=== PATIENT | male | born 1935 | race Caucasian/White ===

== ENCOUNTER 2017-04-19 17:35 | Inpatient (IN) | payer OTHER, BC ==
[~2017-04-19] VITALS: Ht 180.3 cm; Wt 95.4 kg
--- NOTE | ~2017-04-19 | HC ---
[facility] [place] [address] CONSULTATION Name: JEROME WHITLOCK Room #: 208-P [facility] IN M.R.#: [id number] Admission: 04/19/17 Attend Phys: Darek Alanis MD Discharge: Date of : 35 Report #: [id number] THIS REPORT FOR: //name// CC: Be Javid Alanis DATE OF SERVICE: 04/20/2017 REASON FOR CONSULTATION: Possible exacerbation of chronic obstructive pulmonary disease. IMPRESSION: 1. Bilateral pulmonary infiltrates, likely congestive heart failure, but since there is a possible left effusion, we will further review. 2. Atrial fibrillation with rapid ventricular response. 3. Chronic obstructive pulmonary disease. 4. Esophageal cancer. 5. Distant history of tobacco use. PLAN: EzPAP, DuoNeb, budesonide, sputum culture. Diurese per Cardiology. Incentive spirometry, PT/OT to see, Speech Therapy to see for aspiration. Doubt pulmonary embolus with the patient being on Pradaxa. HISTORY OF PRESENT ILLNESS: An 82-year-old male, admitted to [facility] with AFib with RVR and transferred here for further therapy. He denies fever, chills or sweats. He has not seen Dr. Park in [place]. We discussed followup with this in the future. He denies hemoptysis or hematemesis. MEDICATIONS: Include aspirin, Hytrin, potassium, clonidine, Lipitor, ____, Combivent, Pradaxa, Symbicort, Diovan. FAMILY HISTORY: Noncontributory. SOCIAL HISTORY: Quit smoking 30 years ago. Negative significant ETOH. REVIEW OF SYSTEMS: No fever, chills or night sweats. No nausea or vomiting. Positive cough, whitish to sellers sputum. No loose stools. PHYSICAL EXAMINATION: VITAL SIGNS: Temperature 98.3, pulse 100, respirations 18, BP 141/68. GENERAL: Voice is hoarse. He is alert and oriented. LUNGS: Wheeze, rhonchi, crackles bilaterally. HEART: Irregular. ABDOMEN: Bowel sounds present. EXTREMITIES: Showed chronic change, moved all extremities. No calf tenderness. [facility] [address] [place] [address] CONSULTATION Name: JEROME WHITLOCK Room #: 208-P [facility] IN M.R.#: [id number] Admission: 04/19/17 Attend Phys: Darek Alanis MD Discharge: Date of : 35 Report #: [id number] LABORATORY DATA: White count 7.7, hemoglobin 11.7, platelets 220. BUN 21, creatinine 1.2, albumin 2.1. INR 1.2. The pH 7.38, pCO2 of 45, pO2 of 80 on 3-1/2 liters. Lactate was 1.39. Chest x-ray showed cardiomegaly, pulmonary vascular congestion, question left greater than right effusion. We will follow closely with you. <ELECTRONICALLY SIGNED> By: Viktor Redmond MD 04/24/17 0942 1126 55 Viktor Redmond MD /nt
--- NOTE | ~2017-04-19 | EKG ---
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 : 1935 Requested By: Giuliana Baker Order Number: [id number] MD: Shar Art Measurements Intervals [place] Rate: 122 P: 155 UT: 112 QRS: -45 QRSD: 150 T: 27 QT: 379 QTc: 540 Interpretive Statements Atrial fibrillation with a rapid ventricular response Multiform ventricular premature complexes RBBB and LAFB Compared to ECG 06/26/2011 08:56:14 Ventricular premature complex(es) now present Atrial fibrillation has replaced sinus rhythm Electronically Signed On 04-20-2017 7:27:42 CDT by Shar Art [email or web address] <ELECTRONICALLY SIGNED> By: Shar Art MD, [facility] 04/20/17 0727 1950 1950 Shar Art MD, [facility] /EPI
--- NOTE | ~2017-04-19 | 2DMMODE ---
[facility] [address] [place] [address] 2 D/M-MODE ECHOCARDIOGRAM Name: JEROME WHITLOCK Room #: 208-P [facility] IN [facility]#: [id number] Admission: 04/19/17 Attend Phys: Darek Alanis, Discharge: Date of : 35 Date of Service: 04/22/17 1112 Report #: [id number] THIS REPORT FOR: //name// APPROVED REPORT Study performed: 04/22/2017 08:52:24 EXAM: Comprehensive 2D, Doppler, and color-flow Echocardiogram Patient Location: Bedside Room #: 208 Status: routine BSA: 2.18 HR: 102 bpm BP: 119/64 mmHg Other Information Study Quality: Adequate Indications COPD Atrial Fibrillation Dyspnea CAD 2D Dimensions RVDd: 32.35 mm LVEF(%): 51.49 (>50%) IVSd: 10.48 (7-11mm) LVOT Diam: 19.88 (18-24mm) LVDd: 45.38 mm PWd: 11.20 (7-11mm) Ascending Ao: 36.51 (22-36mm) LVDs: 33.49 (25-40mm) Aortic Root: 27.28 mm IVC: 17.00 mm Hubbard's LVEF: 51.49 % Volumes Left Atrial Volume (Systole) Single Plane 4CH: 72.09 mL Single Plane 2CH: 68.73 mL LA ESV Index: 34.00 mL/m2 Aortic Valve AoV Peak Morris.: 1.44 m/s AO Peak Gr.: 8.33 mmHg LVOT Max P.66 mmHg LVOT Max V: 0.81 m/s WINSTON Vmax: 1.76 cm2 Mitral Valve [facility] [address] [place] [address] 2 D/M-MODE ECHOCARDIOGRAM Name: JEROME WHITLOCK Room #: 208-P [facility] IN [facility].#: [id number] Admission: 04/19/17 Attend Phys: Darek Alanis, Discharge: Date of : 35 Date of Service: 04/22/17 1112 Report #: [id number] MV Decel. Time: 238.40 ms MV E Max Morris.: 0.80 m/s IVRT: 103.81 ms Pulmonary Valve PV Peak Morris.: 1.04 m/s PV Peak Gr.: 4.33 mmHg Tricuspid Valve TR Peak Morris.: 2.44 m/s TR Peak Gr.: 23.82 mmHg PA Pressure: 29.00 mmHg Left Ventricle The left ventricle is normal size. Slightly abnormal septal motion likely due to conduction abnormality, otherwise normal wall motion Other segments There is normal left ventricular wall thickness. The left ventricular systolic function is normal. The left ventricular ejection fraction is within the normal range. LVEF is 55-60%. Transmitral Doppler flow pattern suggests restrictive physiology. Right Ventricle The right ventricle is normal size. The right ventricular systolic function is normal. Atria Left atrium is dilated. Right atrium is dilated. Aortic Valve Aortic valve is calcified. Trace aortic regurgitation. There is no aortic valvular stenosis. Mitral Valve The mitral valve is normal in structure. There is mitral annular calcification. Trace to mild mitral regurgitation. No evidence of mitral valve stenosis. Tricuspid Valve The tricuspid valve is normal in structure. Mild to moderate tricuspid regurgitation. Estimated PA pressure 35-40mmHg mmHg Pulmonic Valve The pulmonary valve is normal in structure. [employer] [facility] [address] [place] [address] 2 D/M-MODE ECHOCARDIOGRAM Name: JEROME WHITLOCK Room #: 208-P ADM IN M.R.#: [id number] Admission: 04/19/17 Attend Phys: Darek Alanis, Discharge: Date of : 35 Date of Service: 04/22/17 1112 Report #: [id number] The aortic root is normal in size. IVC is normal in size and collapses >50% with inspiration. Pericardium There is no pericardial effusion. <Conclusion> LVEF is 55-60%. Left atrium is dilated. Right atrium is dilated. Aortic valve is calcified. Transmitral Doppler flow pattern suggests restrictive physiology. Trace to mild mitral regurgitation. Mild to moderate tricuspid regurgitation. <ELECTRONICALLY SIGNED> By: Ron Patel MD, [facility] 04/22/17 1112 11 11 Ron Patel MD, [facility] /INF
--- NOTE | ~2017-04-19 | HC ---
[facility] [place] [address] CONSULTATION Name: JEROME WHITLOCK Room #: 208-P [facility] IN .R.#: [id number] Admission: 04/19/17 Attend Phys: Darek Alanis MD Discharge: Date of : 35 Report #: [id number] THIS REPORT FOR: //name// CC: Be Javid Alanis DATE OF SERVICE: 04/23/2017 HISTORY OF PRESENT ILLNESS: The patient is an 82-year-old white male with a history of atrial fibrillation, hypertension, elevated lipids, chronic respiratory failure, and 1 liter nasal prong O2 at night. He was admitted with atrial fibrillation with rapid ventricular rate. He had a heart rate up into 170s. He was started on diltiazem drip, transferred to [facility]. He is on Pradaxa. He is noted to have acute on chronic diastolic heart failure, diagnosed with aspiration pneumonia. He also was noted to have an encephalopathy thought to be metabolic. CT of the head was negative. Pulmonary Medicine is involved as well as Internal Medicine. He is noted to have significant weakness along with his encephalopathy and we are seeing him in rehabilitation medicine consultation. PAST MEDICAL HISTORY: Esophageal cancer for which he has been on chemotherapy and radiation. He has history of COPD. He had a coronary artery bypass graft x 4 back and back on O2, history of ischemic cardiomyopathy. MEDICATIONS: Please see the full medication listing. ALLERGIES: SULFA. HABITS: Past tobacco use. SOCIAL HISTORY: Lives in a house with his . He only used a walk most recently with his worsening medical condition. He was on oxygen at night. No steps into the house, was noted to be able to assist with some of the chores around the house and was doing some driving. is apparently in good health. REVIEW OF SYSTEMS: Did not offer any current complaints of chest pain, shortness of breath, abdominal discomfort. Complains of some overall generalized weakness. Notes some frustration and is hoping to return back to the home setting when further improved. PHYSICAL EXAMINATION: GENERAL: An 82-year-old male in no obvious distress. VITAL SIGNS: Last recorded temperature is 98.1, pulse 105, respirations 18, blood pressure 135/87. NEUROLOGIC: He is alert, pleasant. There is a definite latency to his responses. He has some difficulty understanding some of the testing and [facility] [address] [place] [address] CONSULTATION Name: JEROME WHITLOCK Room #: 208-P [facility] IN M.R.#: [id number] Admission: 04/19/17 Attend Phys: Darek Alanis MD Discharge: Date of : 35 Report #: [id number] commands following that, I was asking him to do. Facies appeared symmetric. He is on nasal prong O2, currently 3 liters. He has functional range of motion of both upper extremities. Strength is grade 4- to 3+/5. DTRs are trace to 1. In his lower extremities, there is no focal calf swelling, functional range of motion with strength grade 3+/5. DTRs are trace to 1. He is mod assist with sit to stand. Gait was 2 feet and then 10 side steps with the front wheeled walker. He is needing mod assist. He is on a mechanical soft diet with thin liquids. ASSESSMENT: An 82-year-old white male with the following problems: 1. Metabolic encephalopathy. 2. Medical complexity with generalized debilitation. 3. Acute on chronic diastolic heart failure. 4. Atrial fibrillation with rapid ventricular rate. He has been on digoxin IV, metoprolol with goal to try to wean off the drip. He is on Pradaxa. 5. Pneumonia noted to be aspiration pneumonia. 6. Past history of esophageal cancer with treatment with chemoradiation. 7. Hypertension. 8. Mmzivcfd-ma-wkgxjw protein-calorie malnutrition. 9. Prior history of coronary artery bypass grafting x 4. 10. Past history of ischemic cardiomyopathy. PLAN: Would anticipate that the patient would be a candidate for an acute in-hospital inpatient rehabilitation stay. To further maximize his functional independence once he is further medically stabilized. From a preadmission screening perspective: 1. Prior level of function is well delineated above. 2. Expect level of improvement would be for the patient to become modified independent with transfers, mobility and ADLs at the walker level with improved cognition and improve strength and endurance. Would anticipate length of stay of probably 7-10 days, potentially longer if needed. 3. Evaluation of the patient's risk for clinical complications. He does have the multiple medical comorbidities as noted above. 4. Condition that caused the need for rehabilitation would be the metabolic encephalopathy along with a medical complexity with generalized debilitation. 5. Treatments needed would include PT, OT and speech 1 hour per day each five days a week throughout the duration of the acute inpatient rehabilitation stay. 6. Anticipated discharge destination would be back to the home setting with . 7. Anticipated post-discharge treatments would include home healthcare therapies post-discharge. 8. The patient meets diagnostic criteria for an acute in-hospital inpatient rehabilitation stay. He does meet medical necessity criteria and we would have the multiple cognos consultant physicians continue to follow along with him while he is on rehabilitation. This includes Internal Medicine, Cardiology and Pulmonary Medicine. The patient does appear to have the tolerance for an acute [facility] [address] [place] [address] CONSULTATION Name: JEROME WHITLOCK Room #: 208-P [facility] IN .R.#: [id number] Admission: 04/19/17 Attend Phys: Darke Alanis MD Discharge: Date of : 35 Report #: [id number] in-hospital inpatient rehabilitation stay and has appropriate discharge goals back to the home setting. By: [id number] 0205 Bubba English MD /PMT
--- NOTE | ~2017-04-19 | EKG ---
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 Compared to ECG 04/20/2017 06:10:05 Ventricular premature complex(es) now present Electronically Signed On 04-21-2017 12:00:35 CDT by Boy Johnson [email or web address] <ELECTRONICALLY SIGNED> By: Boy Johnson MD 04/21/17 1200 0856 0856 Boy Johnson MD /RAMY
--- NOTE | ~2017-04-19 | EKG ---
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 : 1935 Requested By: Bubba Cao Order Number: [id number] MD: Shar Art Measurements Intervals [place] Rate: 113 P: [place]: QRS: -47 QRSD: 144 T: 37 QT: 349 QTc: 479 Interpretive Statements Atrial fibrillation RBBB and LAFB Compared to ECG 06/26/2011 08:56:14 Left anterior fascicular block now present Premature ventricular complexes are no longer present Electronically Signed On 04-20-2017 7:33:49 CDT by Shar Art [email or web address] <ELECTRONICALLY SIGNED> By: Shar Art MD, [facility] 04/20/17 0733 0610 0610 Shar Art MD, [facility] /EPI
--- NOTE | ~2017-04-19 | HC ---
[facility] [place] [address] CONSULTATION Name: JEROME WHITLOCK Room #: 208-P [facility] IN .R.#: [id number] Admission: 04/19/17 Attend Phys: Darek Alanis MD Discharge: Date of : 35 Report #: [id number] THIS REPORT FOR: //name// CC: Be Alanis DATE OF SERVICE: 04/20/2017 REQUESTING PHYSICIAN: Dr. Be Hua. FREE LANCE ARTIST: Dr. Ron Patel. REASON FOR CONSULTATION: Atrial fibrillation, shortness of breath, cough. HISTORY OF PRESENT ILLNESS: The patient is an 82-year-old man with obstructive lung disease, presented to Emergency Department at [facility] with dizziness and weakness, shortness of breath, atrial fibrillation, heart rates in the 150s to 160s. He was given IV Cardizem and his heart rate improved to 120s. 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 This included anticoagulation as well as rate control for his persistent atrial fibrillation. PAST MEDICAL HISTORY: He has a history of coronary artery disease, but denies chest pain or pressure. He admits he has been short of breath and coughing. He has a history of lung disease. He has oxygen requirement of 2 liters, his sats are in the low 90s. He denies syncope or presyncope. Denies fall or GI or bleeding. HOME MEDICATIONS: Include persistent atrial fibrillation, chronically anticoagulated, history of 2002 CABG, essential hypertension, adenocarcinoma of the esophagus, this year with chemotherapy and radiation therapy. His home medications include atorvastatin 40 mg daily, clonidine 0.2 mg p.o. b.i.d., Cardizem 180 mg p.o. daily and 240 mg in the evening, hydrochlorothiazide 25 mg daily, albuterol, Atrovent, metoprolol 25 mg p.o. b.i.d. FAMILY HISTORY: Both his parent had heart disease and strokes. PAST SURGICAL HISTORY: No recent surgeries. SOCIAL HISTORY: He is a former smoker. Quit more than 20 years ago. He does not drink. [facility] [address] [place] [address] CONSULTATION Name: JEROME WHITLOCK Room #: 208-P [facility] IN [facility].#: [id number] Admission: 04/19/17 Attend Phys: Darek Alanis MD Discharge: Date of : 35 Report #: [id number] ALLERGIES: SULFA. REVIEW OF SYSTEMS: GASTROINTESTINAL: No abdominal pain, nausea, vomiting, hematemesis or melena. NEUROLOGIC: Denies slurred speech, weakness or falls. SKIN: No rashes. HEMATOLOGIC: No anemia or bleeding disorders. ALLERGIES: CONTRAST allergies. CARDIOVASCULAR: No chest pain. Positive shortness of breath, positive orthopnea, positive PND, no edema. He actually has lost weight. GENITOURINARY: No dysuria or hematuria. MUSCULOSKELETAL: Joint or leg pain or swelling. VITAL SIGNS: He is in atrial fibrillation and on a Cardizem drip with heart rate in the 120s, blood pressure is stable in 130s to 160s with ____ diastolic blood pressures in the 70s, O2 sats 95% on 2-3 liters, temperature is 36.9. GENERAL: This is a pleasant elderly male who is alert, oriented, no apparent distress. NECK: Supple. No jugular venous distention. CARDIOVASCULAR: Irregular, I cannot hear a murmur or S3. LUNGS: Coarse breath sounds bilaterally. ABDOMEN: Soft, nontender. EXTREMITIES: There is no peripheral edema. SKIN: Warm and dry. Electrocardiogram from [place] demonstrated atrial fibrillation with controlled ventricular response. LABORATORY DATA: From [place]: INR was 1.4, sodium is 139, potassium 3.7, chloride is 103, CO2 is 30, BUN is 23, creatinine is 1.0. AST is 20, ALT 16. Troponin I is 0.04. BNP is 10,188. RADIOLOGIC IMAGING: Chest x-ray here at [place] demonstrates cardiomegaly with pulmonary vascular congestion and mild interstitial edema, pleural effusions, left basilar pneumonia not excluded. His troponin I was reportedly normal at [facility]. IMPRESSION: 1. Acute diastolic congestive heart failure. I have ordered an echocardiogram to assess LV function. He is on b.i.d. Lasix. 2. Atrial fibrillation with rapid ventricular response, part of this is due to medicine noncompliance. I would continue with Cardizem. I would avoid amiodarone and high dose beta blockers because of obstructive lung disease. 3. Possible pneumonia. I will consult our pulmonary colleagues. 4. Chronic obstructive pulmonary disease exacerbation as above. [facility] [address] [place] [address] CONSULTATION Name: JEROME WHITLOCK [place] Room #: 208-P [facility] IN M.R.#: [id number] Admission: 04/19/17 Attend Phys: Darek Alanis MD Discharge: Date of : 35 Report #: [id number] 5. Coronary artery disease, status post coronary artery bypass graft, clinically he is asymptomatic for angina. We will continue with conservative medical treatment approach. 6. History of adenocarcinoma. He has significant debilitation. By: [id number] Ron Patel MD, FACC /nt
[~2017-04-19 17:35] MED LIST: ADULT LOW DOSE81 MG PO; AVODART0.5 MG PO; CLONIDINE HCL0.2 M2 PO; COREG PO; COUMADIN 2 MG TA2 M1 PO; CRESTOR10 MG PO; DILTIAZEM ER180 M1 PO; DUONEB 2.5-0.5 M3 ML; HYDROCHLOROTHIA50 MG PO; HYTRIN10 MG PO; LOPRESSOR PO; MULTAQ400 MG; MULTIVITAMINS PO; NORVASC10 MG; PACERONE 200 M200 M1; POTASSIUM20 PO; PRADAXA150 MG; PROVENTIL; SOTALOL 120 MG120 MG PO; VALTURNA 300-31 EACH PO
[2017-04-19] MEDS ORDERED: LIPITOR40 MG PO (19:38)
[2017-04-19 19:39] VITALS: BP 133/84
[2017-04-19] MEDS ORDERED: CARTIA XT180 M1 PO (19:39)
[2017-04-19] MEDS ORDERED: CARTIA XT240 M1 PO (19:45)
[2017-04-19] MEDS ORDERED: COMBIVENT RESPIM4 GM IH (19:46)
[2017-04-19] MEDS ORDERED: HYDROCHLOROTHIA25 M2 PO (19:46)
[2017-04-19] MEDS ORDERED: TOPROL XL25 MG PO (19:47)
[2017-04-19] MEDS ORDERED: PRADAXA150 MG PO (19:48)
[2017-04-19] MEDS ORDERED: SYMBICORT160 MCG/4. INH (19:48)
[2017-04-19] MEDS ORDERED: DIOVAN320 MG PO (19:49)
[2017-04-19] MEDS ORDERED: TERAZOSIN HCL10 MG PO (19:49)
[2017-04-19 19:53] LABS: HEMATOCRIT 34.4 % (42.0-52.0); HEMOGLOBIN 11.7 gm/dL (14.0-18.0); MCHC 33.9 g/dL (28.0-37.0); MCV 91.2 fL (80.0-100.0); RBC 3.77 mil/uL (4.50-6.00); RDW 19.3 % (10.5-14.5); WBC 7.7 thou/uL (4.0-11.0)
[2017-04-19 19:56] LABS: CALCIUM 8.2 mg/dL (8.5-10.1); CREATININE 1.2 mg/dL (0.7-1.3); POTASSIUM 3.5 mmol/L (3.5-5.1)
[2017-04-19 20:02] LABS: ALBUMIN 2.1 g/dL (3.4-5.0); INR 1.2; PROTIME 12.3 Seconds (9.3-11.4); TOTAL BILIRUBIN 0.9 mg/dL (<0.1-1.0); TOTAL PROTEIN 6.7 g/dL (6.4-8.2)
[2017-04-19 20:13] LABS: ABG COMMENT NO COMPLICATIONS.; ABG SAMPLE TYPE ARTERIAL; BE(vivo) 0.8 mmol/L (-2 to +3); HCO3 26.1 mmol/L (22.0-26.0); LACTATE 1.39 mmol/L (0.5-2.0); O2(CT) 16.3 mL/dL (15.0-23.0); O2Hb 93.4 % (92.0-98.0); PCO2 44.9 mmHg (35.0-45.0); PO2 79.7 mmHg (80.0-100.0); STICK SITE R.RADIAL; pH 7.383 (7.360-7.450); sO2 95.6 % (92.0-98.0); tCO2 27.5 mmol/L (24.0-30.0)
[2017-04-19 23:34] VITALS: BP 149/81
[2017-04-20] VITALS (12 sets, daily range): BP systolic 110–161; BP diastolic 58–108
[2017-04-20 04:22] LABS: HEMATOCRIT 35.5 % (42.0-52.0); HEMOGLOBIN 11.8 gm/dL (14.0-18.0); MCH 30.4 pg (26.0-34.0); MCHC 33.1 g/dL (28.0-37.0); MCV 91.6 fL (80.0-100.0); RBC 3.87 mil/uL (4.50-6.00); RDW 19.4 % (10.5-14.5); WBC 7.6 thou/uL (4.0-11.0)
[2017-04-20 04:30] LABS: INR 1.2; PROTIME 12.4 Seconds (9.3-11.4)
[2017-04-20 04:46] LABS: CALCIUM 8.2 mg/dL (8.5-10.1); POTASSIUM 3.3 mmol/L (3.5-5.1); TOTAL PROTEIN 6.7 g/dL (6.4-8.2)
[2017-04-21] VITALS (8 sets, daily range): BP systolic 117–137; BP diastolic 67–94
[2017-04-21 00:36] LABS: HEMATOCRIT 37.1 % (42.0-52.0); HEMOGLOBIN 12.5 gm/dL (14.0-18.0); MCH 30.6 pg (26.0-34.0); MCHC 33.7 g/dL (28.0-37.0); MCV 90.7 fL (80.0-100.0); RBC 4.09 mil/uL (4.50-6.00); RDW 18.8 % (10.5-14.5); WBC 6.4 thou/uL (4.0-11.0)
[2017-04-21 00:39] LABS: CALCIUM 8.2 mg/dL (8.5-10.1); CREATININE 0.9 mg/dL (0.7-1.3); POTASSIUM 3.1 mmol/L (3.5-5.1)
[2017-04-21 00:40] LABS: INR 1.3; PROTIME 13.5 Seconds (9.3-11.4)
[2017-04-22 03:36] VITALS: BP 119/64
[2017-04-22 03:41] LABS: HEMATOCRIT 36.7 % (42.0-52.0); HEMOGLOBIN 12.1 gm/dL (14.0-18.0); MCH 30.4 pg (26.0-34.0); MCV 92.1 fL (80.0-100.0); RBC 3.99 mil/uL (4.50-6.00); RDW 18.8 % (10.5-14.5); WBC 6.3 thou/uL (4.0-11.0)
[2017-04-22 04:21] LABS: CREATININE 0.8 mg/dL (0.7-1.3); POTASSIUM 3.8 mmol/L (3.5-5.1)
[2017-04-22 07:30] VITALS: BP 117/71
[2017-04-22 08:15] VITALS: BP 122/61
[2017-04-22 12:00] VITALS: BP 134/64
[2017-04-22 15:35] VITALS: BP 106/62
[2017-04-22 19:41] VITALS: BP 125/66
[2017-04-22 23:27] LABS: HEMATOCRIT 34.4 % (42.0-52.0); HEMOGLOBIN 11.7 gm/dL (14.0-18.0); MCH 30.9 pg (26.0-34.0); MCV 90.8 fL (80.0-100.0); PLATELET COUNT 193 thou/uL (150-400); RBC 3.78 mil/uL (4.50-6.00); RDW 18.9 % (10.5-14.5); WBC 6.2 thou/uL (4.0-11.0)
[2017-04-22 23:35] LABS: MANUAL DIFF YES
[2017-04-22 23:57] LABS: ABSOLUTE NEUTROPHILS 3.5 thou/uL (1.4-8.2); ANISOCYTOSIS 2+; ATYPICAL LYMPHS 4 %; METAMYELOCYTES 1 %; TOTAL CELL COUNT 100
[2017-04-23] VITALS (7 sets, daily range): BP systolic 113–153; BP diastolic 71–87
[2017-04-23 04:04] LABS: HEMATOCRIT 34.5 % (42.0-52.0); HEMOGLOBIN 11.7 gm/dL (14.0-18.0); MCH 30.8 pg (26.0-34.0); MCV 90.7 fL (80.0-100.0); RBC 3.81 mil/uL (4.50-6.00); RDW 18.5 % (10.5-14.5); WBC 6.7 thou/uL (4.0-11.0)
[2017-04-23 04:19] LABS: CALCIUM 8.2 mg/dL (8.5-10.1); CREATININE 0.9 mg/dL (0.7-1.3); POTASSIUM 3.6 mmol/L (3.5-5.1)
[2017-04-23 04:20] LABS: INR 1.3; PROTIME 13.5 Seconds (9.3-11.4)
[2017-04-24 03:53] VITALS: BP 121/73
[2017-04-24 04:31] LABS: INR 1.6; PROTIME 16.1 Seconds (9.3-11.4)
[2017-04-24 07:46] VITALS: BP 127/76
[2017-04-24] MEDS ORDERED: DUONEB 2.5-0.5 M3 ML INH (09:28)
[2017-04-24] MEDS ORDERED: ALBUTEROL2.5 MG/0.5 INH (09:29)
[2017-04-24] MEDS ORDERED: DIGOXIN250 MCG PO (09:29)
[2017-04-24] MEDS ORDERED: LOPRESSOR50 PO (09:29)
[2017-04-24] MEDS ORDERED: PACERONE 200 M200 M1 PO (09:29)
[2017-04-24] MEDS ORDERED: K-DUR 20 MEQ T20 MEQ PO (09:30)
[2017-04-24] MEDS ORDERED: COZAAR 50 MG TA50 MG PO (09:30)
[2017-04-24] MEDS ORDERED: CARDIZEM CD 30300 M1 PO (09:30)
[2017-04-24] MEDS ORDERED: PERCOCET PO (09:30)
[2017-04-24] MEDS ORDERED: LASIX 40 MG TAB40 M1 PO (09:30)
[2017-04-24] MEDS ORDERED: MULTIVITAMINS PO (09:31)
[2017-04-24] MEDS ORDERED: PULMICORT0.5 MG/21 INH (09:31)
[2017-04-24] MEDS ORDERED: AVODART0.5 MG PO (09:31)
[2017-04-24] MEDS ORDERED: AUGMENTIN 875-1 EACH PO (09:32)
[2017-04-24 11:00] VITALS: BP 112/60
== END 2017-04-24 11:00 | DRG 177 ==
LOC: 3N 17:35 → 2N 17:47 → ENTRNSPT 04-24 09:56 → 2N 04-24 11:00
PROVIDERS: Hospitalist; Internal Medicine; Internal Medicine Cardiovascular Disease; Nurse Practitioner Family
DX: J69.0 Pneumonitis due to inhalation of food and vomit (principal); I50.33 Acute on chronic diastolic (congestive) heart failure; E43 Unspecified severe protein-calorie malnutrition; G93.41 Metabolic encephalopathy; J44.1 Chronic obstructive pulmonary disease with (acute) exacerbation; C15.9 Malignant neoplasm of esophagus, unspecified; J96.11 Chronic respiratory failure with hypoxia; I11.0 Hypertensive heart disease with heart failure; I25.10 Atherosclerotic heart disease of native coronary artery without angina pectoris; I25.5 Ischemic cardiomyopathy; E78.5 Hyperlipidemia, unspecified; I48.0 Paroxysmal atrial fibrillation; G47.33 Obstructive sleep apnea (adult) (pediatric); E87.6 Hypokalemia; Z79.899 Other long term (current) drug therapy; Z79.82 Long term (current) use of aspirin; Z82.49 Family history of ischemic heart disease and other diseases of the circulatory system; Z82.3 Family history of stroke; Z87.891 Personal history of nicotine dependence; Z88.2 Allergy status to sulfonamides; Z95.1 Presence of aortocoronary bypass graft; Z68.29 Body mass index [BMI] 29.0-29.9, adult
CPT/HCPCS: 10081

== ENCOUNTER 2017-04-24 11:43 | Inpatient (IN) | payer OTHER, BC ==
[~2017-04-24] VITALS: Ht 180.3 cm; Wt 99.0 kg
--- NOTE | ~2017-04-24 | H ---
[facility] [place] [address] [place] [address] HISTORY AND PHYSICAL Name: JEROME WHITLOCK Room #: 504-1 [facility] IN ..#: [id number] Admission: 04/24/17 Attend Phys: Bubba English MD Discharge: 05/10/17 Date of : 35 Report #: [id number] THIS REPORT FOR: //name// CC: Be English DATE OF SERVICE: 04/24/2017 HISTORY OF PRESENT ILLNESS: The patient is an 82-year-old white male with a history of atrial fibrillation, hypertension, elevated lipids, chronic respiratory failure on 1 L nasal prong O2 at night. He was admitted with atrial fibrillation with rapid ventricular rate. He had a heart rate up into the 170s. He was started on a diltiazem drip, transferred to [facility]. He was placed on Pradaxa. He was noted to have lduee-gq-wnqbwhc diastolic heart failure, diagnosed with an aspiration pneumonia. He was also noted to have encephalopathy thought to be metabolic. CT of the head was negative. Pulmonary medicine has been involved as well as internal medicine. He was noted to have significant weakness along with his encephalopathy. He was given clear and has now been admitted for acute in-hospital inpatient rehabilitation. PAST MEDICAL HISTORY: Includes esophageal cancer for which he has been on chemotherapy and radiation. He has a history of COPD. He has had coronary artery bypass grafting x 4 back in 2001. History of ischemic cardiomyopathy. MEDICATIONS: Please see the full medication listing. Each of these was individually reconciled upon admission include vitamins, herbals, and supplements. ALLERGIES: SULFA. HABITS: Past tobacco use. SOCIAL HISTORY: Lives in a house with his . He only used a walker most recently with his worsening medical condition. He was on oxygen at night. No steps into the house. He was noted to be able to assist was some of the chores around the house and was doing some driving. apparently is in good health. REVIEW OF SYSTEMS: He was a little sleepy when I saw him. He complains of some fatigue. No specific complaints of chest pain, shortness of breath or abdominal discomfort. PHYSICAL EXAMINATION: GENERAL: An 82-year-old male seen earlier today, was in no distress. VITAL SIGNS: His temperature was 98.1, pulse 90, respirations 18, blood pressure 127/76. HEENT: Appeared to be benign. Facies were symmetric. He was oriented x 2. CHEST: Some decreased breath sounds at the basement. He was on 3 L nasal prong O2. CARDIOVASCULAR: Cardiac exam sounded [facility] [address] [place] [address] HISTORY AND PHYSICAL Name: JEROME WHITLOCK Room #: 504-1 [facility] IN [facility].#: [id number] Admission: 04/24/17 Attend Phys: Bubba English MD Discharge: 05/10/17 Date of : 35 Report #: [id number] regular rate with extra beats. ABDOMEN: Bowel sounds positive, nontender. GENITOURINARY: He has an indwelling Macedo catheter. RECTAL: Deferred. EXTREMITIES: Upper extremities dy dressing left elbow. Functional range of motion with strength grade 3+ to 4-/5. DTRs are decreased. His lower extremities, no focal calf swelling. Functional range of motion with strength of grade 3+/5. DTRs were trace. He has been max assist with transfers. ASSESSMENT: An 82-year-old white male with the following problems: 1. Metabolic encephalopathy. 2. Medical complexity with generalized debilitation. 3. Uwfca-so-dqnanpa diastolic heart failure. 4. Atrial fibrillation with rapid ventricular rate. 5. Aspiration pneumonia. 6. Past history of esophageal cancer with treatment with chemoradiation. 7. Hypertension. 8. Owwhwrzb-dv-wuyblq protein calorie malnutrition. 9. Prior history of coronary artery bypass grafting x 4. 10. Past history of ischemic cardiomyopathy. PLAN: The patient was admitted for acute in-hospital inpatient rehabilitation stay. From a postadmission physician evaluation perspective, there are no relevant changes since the preadmission screening. Please see the above review of prior and current medical and functional conditions and comorbidities. Please see the patient's previous and current functional status. As far as risk of complication, he has multiple medical comorbidities as noted above. Initial plan of care involves the interdisciplinary acute inpatient rehabilitation program maximizing his functional independence that he can hopefully return back to his prior living situation. Measurable functional goals would be for him to become modified independent with transfers, mobility, ADLs that he can hopefully return back to his prior living situation; also to include his overall cognition with his encephalopathy. Prognosis is reasonably good with estimated length of stay probably fairly long as he is at a low functional level. Potential barriers would include his multiple medical comorbidities and decreased functional status. The patient meets diagnostic criteria for an acute in-hospital inpatient rehabilitation stay. He meets medical necessity criteria and we will have the multiple acquisition consultant physicians continue to follow while he is on the rehab benton. He has the tolerance for an acute rehab program, although we may need to consider putting him on the low endurance program. He does have discharge goals back to the home setting. <ELECTRONICALLY SIGNED> By: Bubba English MD 05/11/17 1111 1945 [id number] Bubba English MD /PMT
--- NOTE | ~2017-04-24 | HC ---
[facility] [place] [address] CONSULTATION Name: JEROME WHITLOCK Room #: 504-1 ADM IN M.R.#: [id number] Admission: 04/24/17 Attend Phys: Bubba English MD Discharge: Date of : 35 Report #: [id number] THIS REPORT FOR: //name// CC: Be English CHIEF COMPLAINT: Hematuria. HISTORY OF PRESENT ILLNESS: The patient is an 82-year-old gentleman who is being seen today at the request of Dr. English for evaluation and management of urinary retention specifically. He is on the rehab unit recovering from a general debilitation and metabolic encephalopathy. He has atrial fibrillation and takes Pradaxa and aspirin. He had a Macedo placed. The nurses noticed blood-tinged urine, but the catheter is draining. ALLERGIES: He is on dutasteride and tamsulosin presumably for BPH. He denies prior hematuria. ALLERGIES: SULFA. MEDICATIONS: Refer to the med reconciliation sheet. ILLNESSES: 1. Coronary disease. 2. Atrial fibrillation. 3. Hypertension. 4. History of esophageal cancer. REVIEW OF SYSTEMS: He denies shortness of breath or chest pain. PHYSICAL EXAMINATION: GENERAL: He is a comfortable-appearing gentleman, sitting up in bed. VITAL SIGNS: Temperature is 36.6, blood pressure 104/46. ABDOMEN: Soft. He has an indwelling Macedo catheter draining clear urine at the present time. LABORATORY DATA: White count 9.8 thousand, hemoglobin 10.7, hematocrit 31.1, platelets 204,000. Sodium 137, potassium 3.9, chloride 101, BUN 22, creatinine 1.1. IMPRESSION: Hematuria, on anticoagulation with a history of benign prostatic hypertrophy, it is most likely traumatically induced. PLAN: I would recommend reevaluation after the Macedo catheter comes out. I am [facility] [address] [place] [address] CONSULTATION Name: JEROME WHITLOCK Room #: 504-1 [facility] IN [facility]#: [id number] Admission: 04/24/17 Attend Phys: Bubba English MD Discharge: Date of : 35 Report #: [id number] happy to see him at any time. Otherwise, evaluation for hematuria would be a CT urogram and a cystoscopy. If more information is required, please contact me. <ELECTRONICALLY SIGNED> By: Bubba Huang MD 04/30/17 0642 [id number] [id number] Bubba Huang MD /nt
--- NOTE | ~2017-04-24 | PLAN ---
[facility] [place] [address] REHAB UNIT PLAN OF CARE Name: JEROME WHITLOCK Room #: 504-1 [facility] IN M.R.#: [id number] Admission: 04/24/17 Attend Phys: Bubba English MD Discharge: 05/10/17 Date of : 35 Report #: [id number] THIS REPORT FOR: //name// CC: Be English DATE OF SERVICE: 04/26/2017 SUBJECTIVE: The patient is seen back today in followup. OBJECTIVE: GENERAL: He is in no distress. VITAL SIGNS: Temperature 36.9, pulse 69, respirations 18, blood pressure 101/45. EXTREMITIES: No focal calf swelling. FUNCTIONAL: Bed mobility is max assist. Transfers are max assist. He is dependent for lower body dressing. In speech therapy, he has qwnp-db-xnfhatwq dysphagia. He is on a mechanical soft with all liquids. ASSESSMENT: 1. Metabolic encephalopathy. 2. Medical complexity with generalized debilitation. 3. Mpgdv-ty-envvedc diastolic heart failure. 4. Atrial fibrillation with rapid ventricular rate. 5. Aspiration pneumonia. 6. Past history of esophageal cancer with treatment with chemoradiation. 7. Hypertension. 8. Agsigyhq-hk-skmpvz protein-calorie malnutrition. 9. Prior history of coronary artery bypass grafting x 4. 10. Past history of ischemic cardiomyopathy. PLAN: Overall plan of care is based on the preadmission screen, post-admission physician evaluation and information garnered from therapy assessments. 1. Estimated length of stay is probably day long as he is at a low level. 2. Medical prognosis is reasonably good. 3. Anticipated interventions includes the interdisciplinary acute inpatient rehabilitation program with PT, OT and speech, rehabilitation nursing assisting regarding medication management, skin care prophylaxis, bowel and bladder issues and nursing education. He continues with the indwelling Macedo catheter for right now. He has been on I's and O's. The therapy team will be working with him as well as the corporate learning consultant physicians. 4. Anticipated functional outcomes would be for the patient to hopefully become modified independent with transfers, mobility and ADLs and to improve as far as overall cognition. He is at a lower functional level currently. We will be placing him on a low endurance program for now. 5. Discharge destination would be for him to get [place] [address] REHAB UNIT PLAN OF CARE Name: JEROME WHITLOCK Room #: 504-1 [facility] IN [facility].#: [id number] Admission: 04/24/17 Attend Phys: Bubba English MD Discharge: 05/10/17 Date of : 35 Report #: [id number] his . 6. Expected therapy by discipline includes PT, OT and speech 1 hour per day each five days a week throughout the duration of the acute inpatient rehabilitation stay. <ELECTRONICALLY SIGNED> By: Bubba English MD 05/11/17 1111 0832 0438 Bubba English MD /TOM
--- NOTE | ~2017-04-24 | CNG ---
[facility] [place] [address] CYTO-NONGYN REPORT PROCEDURE Name: QUINTEN YOUNG SR Room #: 504-1 ADM IN M.R.#: [id number] Admission: 04/24/17 Date of : 35 Discharge: Report #: [id number] Path Case #: [id number] CYTOPATHOLOGY REPORT COLLECTION DATE: 05/04/2017 RECEIVED DATE: 05/05/2017 SUBMITTING PHYS: Dr. Bubba English OTHER PHYS: Dr. Be Redmond CLINICAL HISTORY: AFIB, RVR, Encephalopathy, med complexity, gen debility, acute CHF SPECIMEN(S) RECEIVED: A.Sputum * * * * * * * * * * * * FINAL DIAGNOSIS: A. Sputum: - No malignant cells identified. Pulmonary macrophages along with squamous epithelial cells are present. PATHOLOGIST: Vangie Thurston M.D. REPORT ELECTRONICALLY SIGNED BY: Vangie Thurston M.D. DATE/TIME: 05/06/2017 15:08 * * * * * * * * * * * * GROSS PATHOLOGY: A. Sputum: The specimen is submitted unfixed, labeled "Quinten Young Sr". Received by the Cytology Department is two mL of cloudy white fluid. One ThinPrep slide was prepared. (lg10.) RELIEF MAP MODELER(S): CARLIN Pérez(ASCP) INITIAL CPT CODE(S): A; 31629 Professional services performed by [facility] at [facility] [address], [place] [address] Technical services performed by [facility] at [address] [place] [address]., [address], [place] [address]. [facility] [address] [place] [address], [facility] [address] [place] [address] PHONE: [phone] [facility] [address] [place] [address] CYTO-NONGYN REPORT PROCEDURE Name: QUINTEN YOUNG Room #: 504-1 ADM IN M.R.#: [id number] Admission: 04/24/17 Date of : 35 Discharge: Report #: [id number] Path Case #: [id number] DIRECTOR: Arpan Ireland M.D. * * * END OF REPORT * * *
--- NOTE | ~2017-04-24 | EKG ---
[address] [place] [address] ELECTROCARDIOGRAM REPORT Name: JEROME WHITLOCK Room #: 504-1 ADM IN M.R.#: [id number] Admission: 04/24/17 Attend Phys: Bubba English MD Discharge: Date of : 35 Report #: [id number] THIS REPORT FOR: //name// [facility] Test Date: 2017-04-29 Test Time: 06:19:51 Pat Name: JEROME WHITLOCK Department: Room: [facility] Gender: M Coater: CHARLES : 1935 Requested By: Bubba Cao Order Number: [id number] MD: Shar Art Measurements Intervals Aragon Rate: 92 P: MI: QRS: -34 QRSD: 154 T: 40 QT: 430 QTc: 533 Interpretive Statements Atrial fibrillation Right bundle branch block Compared to ECG 04/21/2017 08:56:32 Left anterior fascicular block no longer present Ventricular premature complex(es) no longer present Electronically Signed On 04-29-2017 7:53:54 CDT by Shar Art [email or web address] <ELECTRONICALLY SIGNED> By: Shar Art MD, [facility] 04/29/17 0753 8 8 Shar Art MD, [facility] /EPI
--- NOTE | ~2017-04-24 | HC ---
[facility] [place] [address] CONSULTATION Name: JEROME WHITLOCK Room #: 504-1 [facility] IN ..#: [id number] Admission: 04/24/17 Attend Phys: Bubba English MD Discharge: Date of : 35 Report #: [id number] THIS REPORT FOR: //name// CC: Be English DATE OF SERVICE: 04/27/2017 CHIEF COMPLAINT: Multiple ulcerations. HISTORY OF PRESENT ILLNESS: This is an 82-year-old male patient who has had a recent acute hospitalization, was admitted to the rehab unit and I have been asked to see him with regard to some wound care issues, which include a left elbow ulceration and some skin tears. The patient is alert, denies significant pain, and seems to be doing well with rehab thus far. He denies any specific complaints and denies pain in his elbow. PAST MEDICAL HISTORY: Positive for hyperlipidemia, hypertension, atrial fibrillation, chronic respiratory failure, he has a history of esophageal cancer, receiving previous chemotherapy and radiation, history of COPD, coronary artery disease, status post CABG, and history of ischemic cardiomyopathy. ALLERGIES: SULFA. SOCIAL HISTORY: Positive for past tobacco use. The patient lives at home with his . REVIEW OF SYSTEMS: CONSTITUTIONAL: The patient denies fever, chills, or weight loss. NEUROLOGIC: The patient denies focal weakness, numbness, or tingling. EYES: The patient denies any visual changes, redness or drainage. ENT: The patient denies earache, nasal drainage, or sore throat. CARDIOVASCULAR: The patient denies chest pain, palpitations, or diaphoresis. PULMONARY: The patient denies cough or shortness of breath. GASTROINTESTINAL: The patient denies nausea, vomiting, diarrhea, or abdominal pain. ORTHOPEDIC: The patient does note the ulceration on his left elbow. Denies other complaints. PHYSICAL EXAMINATION: VITAL SIGNS: At this time include pulse rate 99, respiratory rate of 24, blood pressure 112/56, and temperature 97.6. GENERAL: This is a chronically ill-appearing male patient who appears to be in minimal distress. HEAD: Normocephalic. NECK: Supple. [facility] [address] [place] [address] CONSULTATION Name: JEROME WHITLOCK William Room #: 504-1 ADM IN .R.#: [id number] Admission: 04/24/17 Attend Phys: Bubba English MD Discharge: Date of : 35 Report #: [id number] LUNGS: Diminished. HEART: Regular rhythm. ABDOMEN: Soft. Bowel sounds present. EXTREMITIES: Demonstrate a small ulceration to the left elbow, this appears to have been an olecranon bursitis that has spontaneously drained. He has a small skin tear to his left posterior chest and some areas of friction that are superficial in the gluteal region bilaterally. CLINICAL IMPRESSION: 1. Left olecranon bursitis, status post spontaneous drainage. 2. Skin tear to the left posterior chest wall. 3. Abrasions to the gluteal region bilaterally. 4. History of respiratory failure. 5. History of atrial fibrillation with rapid ventricular response. RECOMMENDATIONS: At this point in time, we will recommend silver alginate packing to the left elbow area, we will recommend a bordered foam dressing to his left posterior chest wall, moist barrier cream to the gluteal region, turning and repositioning while in bed. I appreciate being asked to see him in consultation. <ELECTRONICALLY SIGNED> By: Loki Wang MD 04/28/17 1419 [id number] Loki Wang MD /nt
--- NOTE | ~2017-04-24 | HC ---
[facility] [place] [address] CONSULTATION Name: JEROME WHITLOCK Room #: 504-1 ADM IN M.R.#: [id number] Admission: 04/24/17 Attend Phys: Bubba English MD Discharge: Date of : 35 Report #: [id number] THIS REPORT FOR: //name// CC: Be English REASON FOR CONSULTATION: I was asked to evaluate concerning pulmonary infiltrates. HISTORY OF PRESENT ILLNESS: The patient was an 82-year-old, transferred from [facility] with atrial fibrillation and rapid ventricular response. It was felt that he had an aspiration pneumonia that triggered his tachycardia. He has been treated with Pradaxa and his rate has been controlled. He had metabolic encephalopathy, which has improved. Swallow study shows aspiration risk. CT scan of the chest showed multiple noncalcified nodules along with one spiculated nodule. The patient does have a history of esophageal cancer status post radiation and chemotherapy. He has coronary artery disease, COPD. He was treated with a course of antibiotics and now is off. No fever, chills or sweats. Still has a loose productive cough without hemoptysis. REVIEW OF SYSTEMS: No nausea, vomiting or diarrhea. He has had hematuria, which Urology is assisting. He had left olecranon bursitis, which has drained and is now being packed. ALLERGIES: SULFA. MEDICATIONS: As noted on his SEP, now off antibiotics. PAST MEDICAL HISTORY: Esophageal cancer with radiation and chemotherapy, COPD, coronary artery disease, ischemic cardiomyopathy, previous coronary bypass grafting. SOCIAL HISTORY: Past smoker, no significant alcohol intake. FAMILY HISTORY: Noncontributory. REVIEW OF SYSTEMS: As noted above. PHYSICAL EXAMINATION: VITAL SIGNS: Afebrile and hemodynamically stable. Oxygen saturation 91 and 2 liters of oxygen per nasal cannula. HEENT: Unremarkable. NECK: Supple. No adenopathy. LUNGS: Consolidation heard in the left base posteriorly. HEART: Regular. ABDOMEN: Soft and nontender. EXTREMITIES: Unremarkable. Left elbow was dressed and dry. [facility] [address] [place] [address] CONSULTATION Name: JEROME WHITLOCK Room #: 504-1 [facility] IN ..#: [id number] Admission: 04/24/17 Attend Phys: Bubba English MD Discharge: Date of : 35 Report #: [id number] LABORATORY STUDIES: Urinalysis, many wbc's, few bacteria, few rbc's, yeast present. Sodium 140, potassium 4.3, bicarbonate of 34, creatinine 1.1. Liver function test normal. Albumin of 1.6. On April 30, his hemoglobin was 9.3 with a white count of 9.3 and platelet count of 190,000. On May 20, blood cultures negative. Sputum, normal srinivas with many gram-negative rods, 2 types, not further identified. ____ legionella and strep pneumo antigens negative. CT scan of the chest on April 30, small bilateral pleural effusions with basilar consolidation, multiple noncalcified pulmonary nodules peripherally, spiculated nodule right upper lobe. IMPRESSION: An 82-year-old with basilar infiltrate, mostly in the left on examination. Also has bilateral pulmonary nodules. Would be concerned about infection versus metastatic disease considering his history of esophageal cancer. Has cystitis following a Macedo catheter placement and breathing well on Pradaxa. Atrial fibrillation. Aspiration risk. PLAN: Recommend continuing antibiotic therapy and repeating his sputum culture not only for bacteria, but also for AFB and fungus with sputum cultures. Also, check serologies. Would consider PET scan if not done recently. <ELECTRONICALLY SIGNED> By: Reggie Turcios MD 05/05/17 0905 1707 [id number] Reggie Turcios MD /nt
--- NOTE | ~2017-04-24 | PLAN ---
[facility] [address] [place] [address] REHAB UNIT PLAN OF CARE Name: JEROME WHITLOCK Room #: 504-1 DIS IN M.R.#: [id number] Admission: 04/24/17 Attend Phys: Bubba English MD Discharge: 05/10/17 Date of : 35 Report #: [id number] THIS REPORT FOR: //name// CC: Be English DATE OF SERVICE: 04/26/2017 ADDENDUM The patient missed some therapies on 04/24/2017, secondary to decreased endurance. We will be placing him on low endurance program. <ELECTRONICALLY SIGNED> By: Bubba English MD 05/11/17 1111 0905 0401 Bubba English MD /PMT
--- NOTE | ~2017-04-24 | HC ---
[facility] [place] [address] CONSULTATION Name: JEROME WHITLOCK Room #: 504-1 ADM IN .R.#: [id number] Admission: 04/24/17 Attend Phys: Bubba English MD Discharge: Date of : 35 Report #: [id number] THIS REPORT FOR: //name// CC: Be Hua Bubba English DATE OF SERVICE: 04/25/2017 ATTENDING PHYSICIAN: Bubba English MD. MONOGRAM OPERATOR: Vick Quispe, PhD. CLINICAL PRESENTATION: The patient is an 82-year-old male with a history of atrial fibrillation, hypertension, elevated lipids and chronic respiratory failure. He was admitted to the hospital with atrial fibrillation and a rapid ventricular rate. His diagnoses in the Rehab Unit includes metabolic encephalopathy, medical complexity with generalized debilitation, acute on chronic diastolic heart failure, atrial fibrillation with rapid ventricular rate, aspiration pneumonia, past history of esophageal cancer with treatment including chemoradiation, hypotension, cztmivvw-ch-wizlcv protein calorie malnutrition, prior history of coronary artery bypass grafting x 4 and past history of ischemic cardiomyopathy. A complete description of his medical condition and history can be found in his medical record. Neuropsychological consultation was requested to provide assistance in the assessment of cognitive and emotional status along with providing recommendations and services. Prior to this most recent medical event, he describes himself as living independently in his own home. The patient reports that he was driving and did not require assistance with instrumental activities of daily living. He reports having 3 children. Two live within the [place] area. The patient is a high-school graduate. 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 TECHNIQUES UTILIZED: Clinical interview, review of medical records, staff consultation and behavioral observation, mini mental status exam 2 standard version and clock drawing. EXAMINATION FINDINGS: The patient was alert and cooperative with the assessment. He was vague in regard to the reason for his hospitalization. He reports problems with his legs and tiredness and fatigue. Decreased insight into symptoms of cognitive and emotional distress are suggested. He does not report difficulty with sleep, appetite, word finding or subjective anxiety or depression. He does acknowledge some difficulty with short-term memory. There is no present history of alcohol or tobacco abuse. [facility] [address] [place] [address] CONSULTATION Name: JEROME WHITLOCK Room #: 504-1 [facility] IN [facility].#: [id number] Admission: 04/24/17 Attend Phys: Bubba English MD Discharge: Date of : 35 Report #: [id number] His performance on the MMSE 2 brief version is extremely low with a raw score of 8/16. He was 3/3 for initial registration, but had a delay in his response, 2/5 for orientation to time and 2/[address] He was 1/3 correct for immediate recall after a brief time delay and distraction. His performance is extremely low on the MMSE 2 standard version with a raw score 16/30. He is of 1/5 for serial 7's, 2/2 for naming, 1/1 for repetition, 3/3 for comprehension and 1/1 for being able to read and follow single command. The patient was not able to write a sentence, copy a simple geometric design or draw a clock with adequate placement of the hands or time. At this time, the patient is presenting with severe confusion and cognitive dysfunction. Deficits in sustained concentration, immediate recall and visual spatial organization continue. DIAGNOSTIC IMPRESSION: Delirium, hypoactive, acute. Neurocognitive disorder, without behavioral deficits, extent to be determined, likely in the moderate to severe range. RECOMMENDATIONS: The patient will benefit from continued cognitive rehabilitation with a focus on improving his attention and concentration, organization and memory. Additional contact with his will be helpful in clarifying the severity of his cognitive deficits. Supervision is likely to be necessary to maintain safety for medication and nutrition. A followup neuropsych assessment to clarify cognitive deficits following resolution of the delirium is indicated. Thank you very much for allowing me to provide the consultation on this patient. <ELECTRONICALLY SIGNED> By: Vick Quispe, PhD 05/01/17 1451 1453 2218 Vick Quispe, PhD /nt
[~2017-04-24 11:43] MED LIST changes: +ALBUTEROL2.5 MG/0.5 INH; +AUGMENTIN 875-1 EACH PO; +CARDIZEM CD 30300 M1 PO; +CARTIA XT180 M1 PO; +CARTIA XT240 M1 PO; +COMBIVENT RESPIM4 GM IH; +COZAAR 50 MG TA50 MG PO; +DIGOXIN250 MCG PO; +DIOVAN320 MG PO; +DUONEB 2.5-0.5 M3 ML INH; +HYDROCHLOROTHIA25 M2 PO; +K-DUR 20 MEQ T20 MEQ PO; +LASIX 40 MG TAB40 M1 PO; +LIPITOR40 MG PO; +LOPRESSOR50 PO; +PACERONE 200 M200 M1 PO; +PERCOCET PO; +PRADAXA150 MG PO; +PULMICORT0.5 MG/21 INH; +SYMBICORT160 MCG/4. INH; +TERAZOSIN HCL10 MG PO; +TOPROL XL25 MG PO
[2017-04-24 19:28] VITALS: BP 104/52
[2017-04-24 23:15] VITALS: BP 114/65
[2017-04-25 02:47] VITALS: BP 134/68
[2017-04-25 06:27] LABS: HEMATOCRIT 33.9 % (42.0-52.0); HEMOGLOBIN 11.3 gm/dL (14.0-18.0); MCH 30.4 pg (26.0-34.0); MCHC 33.2 g/dL (28.0-37.0); MCV 91.5 fL (80.0-100.0); RBC 3.71 mil/uL (4.50-6.00); RDW 18.4 % (10.5-14.5); WBC 6.8 thou/uL (4.0-11.0)
[2017-04-25 06:34] LABS: CALCIUM 8.4 mg/dL (8.5-10.1); CREATININE 0.9 mg/dL (0.7-1.3); POTASSIUM 3.8 mmol/L (3.5-5.1)
[2017-04-25 06:35] LABS: INR 1.4; PROTIME 14.1 Seconds (9.3-11.4)
[2017-04-25 07:35] VITALS: BP 132/68
[2017-04-25 20:15] VITALS: BP 101/45
[2017-04-26 04:37] LABS: INR 1.4; PROTIME 13.9 Seconds (9.3-11.4)
[2017-04-26 08:00] VITALS: BP 124/46
[2017-04-26 21:00] VITALS: BP 131/69
[2017-04-27 06:33] LABS: INR 1.3; PROTIME 13.1 Seconds (9.3-11.4)
[2017-04-27 08:00] VITALS: BP 112/56
[2017-04-27 19:44] VITALS: BP 100/57
[2017-04-28 04:43] LABS: INR 1.2; PROTIME 12.6 Seconds (9.3-11.4)
[2017-04-28 13:32] LABS: HEMATOCRIT 31.1 % (42.0-52.0); HEMOGLOBIN 10.7 gm/dL (14.0-18.0); MCHC 34.2 g/dL (28.0-37.0); MCV 90.5 fL (80.0-100.0); RBC 3.44 mil/uL (4.50-6.00); WBC 9.8 thou/uL (4.0-11.0)
[2017-04-28 13:46] LABS: ALBUMIN 1.8 g/dL (3.4-5.0); CALCIUM 8.1 mg/dL (8.5-10.1); CREATININE 1.1 mg/dL (0.7-1.3); POTASSIUM 3.9 mmol/L (3.5-5.1); TOTAL BILIRUBIN 0.5 mg/dL (<0.1-1.0); TOTAL PROTEIN 6.6 g/dL (6.4-8.2)
[2017-04-28 21:00] VITALS: BP 104/46
[2017-04-29 03:26] LABS: INR 1.2; PROTIME 12.7 Seconds (9.3-11.4)
[2017-04-29 08:00] VITALS: BP 137/55
[2017-04-29 08:02] LABS: HEMATOCRIT 29.9 % (42.0-52.0); HEMOGLOBIN 9.8 gm/dL (14.0-18.0)
[2017-04-30 04:37] LABS: HEMATOCRIT 27.5 % (42.0-52.0); HEMOGLOBIN 9.3 gm/dL (14.0-18.0); MCH 30.7 pg (26.0-34.0); MCHC 33.8 g/dL (28.0-37.0); MCV 91.1 fL (80.0-100.0); RBC 3.01 mil/uL (4.50-6.00); RDW 18.8 % (10.5-14.5); WBC 9.3 thou/uL (4.0-11.0)
[2017-04-30 20:30] VITALS: BP 104/53
[2017-05-01 10:20] VITALS: BP 121/60
[2017-05-01 19:55] VITALS: BP 118/49
[2017-05-02 08:01] VITALS: BP 115/52
[2017-05-02 19:35] VITALS: BP 99/42
[2017-05-03 08:00] VITALS: BP 118/65
[2017-05-03 19:56] VITALS: BP 129/59
[2017-05-04 04:20] LABS: ALBUMIN 1.6 g/dL (3.4-5.0); CALCIUM 7.8 mg/dL (8.5-10.1); CREATININE 1.1 mg/dL (0.7-1.3); MAGNESIUM 1.6 mg/dL (1.8-2.4); POTASSIUM 4.3 mmol/L (3.5-5.1); TOTAL BILIRUBIN 0.4 mg/dL (<0.1-1.0); TOTAL PROTEIN 5.7 g/dL (6.4-8.2)
[2017-05-04 08:00] VITALS: BP 111/52
[2017-05-04 10:40] LABS: URINE BILIRUBIN NEGATIVE (Negative); URINE BLOOD 3+ (Negative); URINE COLOR YELLOW; URINE GLUCOSE-RANDOM* NEGATIVE (Negative); URINE KETONES TRACE (Negative); URINE LEUKOCYTES-REFLEX 3+ (Negative); URINE PROTEIN (DIPSTICK) 1+ (Negative); URINE SPECIFIC GRAVITY 1.015 (1.003-1.035)
[2017-05-04 11:04] LABS: YEAST-REFLEX Present (None Seen)
[2017-05-04 11:05] LABS: CASTS None Seen /LPF (None Seen); SQUAMOUS 0-3 Few /LPF (0-3); URINE WBC-REFLEX >25 Many /HPF (0-5)
[2017-05-04 11:06] LABS: CRYSTALS None Seen /LPF (None Seen); URINE RBC 3-10 Few /HPF (0-2)
[2017-05-04 19:45] VITALS: BP 122/56
[2017-05-05 04:28] LABS: HEMOGLOBIN 9.3 gm/dL (14.0-18.0)
[2017-05-05 04:33] LABS: ABSOLUTE NEUTROPHILS 4.7 thou/uL (1.4-8.2); BASOPHILS 0.6 % (0.0-2.0); EOSINOPHILS 1.5 % (0.0-3.0); HEMATOCRIT 27.6 % (42.0-52.0); LYMPHOCYTES 27.7 % (24.0-44.0); MCH 30.8 pg (26.0-34.0); MCHC 33.5 g/dL (28.0-37.0); MCV 91.9 fL (80.0-100.0); MONOCYTES 11.1 % (1.0-8.0); PLATELET COUNT 219 thou/uL (150-400); POLYS 59.1 % (36.0-66.0); RBC 3.01 mil/uL (4.50-6.00); RDW 19.6 % (10.5-14.5); WBC 7.9 thou/uL (4.0-11.0)
[2017-05-05 04:34] LABS: MANUAL DIFF NO
[2017-05-05 04:42] LABS: CALCIUM 8.2 mg/dL (8.5-10.1); MAGNESIUM 1.8 mg/dL (1.8-2.4); POTASSIUM 3.8 mmol/L (3.5-5.1)
[2017-05-05] MEDS ORDERED: HYDROCHLOROTHIA25 M1 PO (17:03)
[2017-05-05] MEDS ORDERED: LOPRESSOR25 PO (17:04)
[2017-05-05] MEDS ORDERED: CARTIA XT240 M1 PO (17:07)
[2017-05-05] MEDS ORDERED: CARTIA XT180 M1 PO (17:07)
[2017-05-05] MEDS ORDERED: COMBIVENT RESPIM4 GM (17:09)
[2017-05-05] MEDS ORDERED: TERAZOSIN HCL10 MG PO (17:10)
[2017-05-05] MEDS ORDERED: SYMBICORT160 MCG/4. INH (17:10)
[2017-05-05] MEDS ORDERED: DIOVAN320 MG PO (17:11)
[2017-05-05 20:27] VITALS: BP 130/70
[2017-05-06 08:03] VITALS: BP 119/66
[2017-05-06 21:38] VITALS: BP 108/59
[2017-05-07 08:15] VITALS: BP 109/76
[2017-05-07 19:07] LABS: HISTOPLASMA MYCELIAL-ID Negative (Negative)
[2017-05-07 20:47] VITALS: BP 133/71
[2017-05-08 08:15] VITALS: BP 136/76
[2017-05-08 20:05] VITALS: BP 117/60
[2017-05-09 08:00] VITALS: BP 142/72
[2017-05-09 20:04] VITALS: BP 126/72
[2017-05-09 20:28] VITALS: BP 125/72
[2017-05-10 06:19] LABS: ABSOLUTE NEUTROPHILS 4.4 thou/uL (1.4-8.2); BASOPHILS 1.1 % (0.0-2.0); EOSINOPHILS 1.5 % (0.0-3.0); HEMATOCRIT 30.2 % (42.0-52.0); LYMPHOCYTES 27.4 % (24.0-44.0); MCH 30.7 pg (26.0-34.0); MONOCYTES 10.8 % (1.0-8.0); PLATELET COUNT 196 thou/uL (150-400); POLYS 59.2 % (36.0-66.0); RBC 3.25 mil/uL (4.50-6.00); RDW 18.7 % (10.5-14.5); WBC 7.5 thou/uL (4.0-11.0)
[2017-05-10 06:23] LABS: MANUAL DIFF NO
[2017-05-10 06:27] LABS: CALCIUM 7.8 mg/dL (8.5-10.1); CREATININE 0.8 mg/dL (0.7-1.3); MAGNESIUM 1.6 mg/dL (1.8-2.4); POTASSIUM 3.1 mmol/L (3.5-5.1)
[2017-05-10 08:30] VITALS: BP 113/67
[2017-05-10] MEDS ORDERED: AUGMENTIN 875-1 EACH PO (08:35)
[2017-05-10] MEDS ORDERED: PROTONIX40 M1 PO (08:35)
[2017-05-10] MEDS ORDERED: LASIX 40 MG TAB40 M1 PO (08:35)
[2017-05-10] MEDS ORDERED: ASPIRIN325 PO (08:35)
[2017-05-10] MEDS ORDERED: ACIDOPHILUS1 EAC4 PO (08:35)
[2017-05-10] MEDS ORDERED: MAGOX 400400 MG PO (08:35)
[2017-05-10] MEDS ORDERED: COLACE100 MG PO (08:35)
[2017-05-10] MEDS ORDERED: CARDIZEM CD 30300 M1 PO (08:35)
[2017-05-10] MEDS ORDERED: DIGOXIN250 MCG PO (08:35)
[2017-05-10] MEDS ORDERED: FLOMAX0.4 MG PO (08:35)
[2017-05-10 09:04] VITALS: BP 113/67
[2017-05-10 09:52] LABS: NIL (NEGATIVE) CONTROL SPOT CT 1; PANEL A SPOT CT 0; PANEL B SPOT CT 0; POSITIVE CONTROL SPOT COUNT > 20; T-SPOT.TB Negative
[2017-05-10] MEDS ORDERED: DUONEB 2.5-0.5 M3 ML INH (10:41)
[2017-05-10 11:43] VITALS: BP 113/67
[2017-05-10 12:49] VITALS: BP 113/67
== END 2017-05-10 14:05 | disposition home health service (06) | DRG 70 ==
PROVIDERS: Hospitalist; Nurse Practitioner; Physical Medicine & Rehabilitation; Specialist
DX: G93.41 Metabolic encephalopathy (principal); J69.0 Pneumonitis due to inhalation of food and vomit; I50.33 Acute on chronic diastolic (congestive) heart failure; E43 Unspecified severe protein-calorie malnutrition; C15.9 Malignant neoplasm of esophagus, unspecified; J96.11 Chronic respiratory failure with hypoxia; R53.81 Other malaise; R41.9 Unspecified symptoms and signs involving cognitive functions and awareness; R41.0 Disorientation, unspecified; I25.5 Ischemic cardiomyopathy; I48.91 Unspecified atrial fibrillation; I11.0 Hypertensive heart disease with heart failure; M70.22 Olecranon bursitis, left elbow; J44.9 Chronic obstructive pulmonary disease, unspecified; R31.9 Hematuria, unspecified; G47.33 Obstructive sleep apnea (adult) (pediatric); D64.9 Anemia, unspecified; L89.322 Pressure ulcer of left buttock, stage 2; E87.6 Hypokalemia; L89.312 Pressure ulcer of right buttock, stage 2; E83.42 Hypomagnesemia; Z28.21 Immunization not carried out because of patient refusal; Z79.01 Long term (current) use of anticoagulants; Z87.891 Personal history of nicotine dependence; Z88.2 Allergy status to sulfonamides; Z68.30 Body mass index [BMI] 30.0-30.9, adult; Z95.1 Presence of aortocoronary bypass graft
CPT/HCPCS: 10092

== ENCOUNTER 2017-09-14 12:11 | Inpatient (IN) | payer OTHER, BC ==
[~2017-09-14] VITALS: Ht 180.3 cm; Wt 97.2 kg
--- NOTE | ~2017-09-14 | 2DMMODE ---
[facility] [address] [place] [address] 2 D/M-MODE ECHOCARDIOGRAM Name: JEROME WHITLOCK Room #: 201-P [facility] IN ..#: [id number] Admission: 09/14/17 Attend Phys: Dawn Zhu Discharge: Date of : 35 Date of Service: 09/16/17 1436 Report #: [id number] THIS REPORT FOR: //name// APPROVED REPORT Study performed: 09/16/2017 10:51:09 EXAM: Limited 2D, Doppler, and color-flow Echocardiogram Patient Location: Bedside Room #: 201 Status: routine BSA: 2.16 HR: 118 bpm BP: 144/99 mmHg Other Information Study Quality: Adequate Indications Congestive Heart Failure Atrial Fibrillation CAD 2D Dimensions RVDd: 36.40 mm LVEF(%): 66.66 (>50%) IVSd: 15.30 (7-11mm) LVDd: 42.46 mm PWd: 14.56 (7-11mm) LVDs: 26.95 (25-40mm) IVC: 31.00 mm Hubbard's LVEF: 66.66 % Aortic Valve AoV Peak Morris.: 2.01 m/s AO Peak Gr.: 16.17 mmHg LVOT Max P.22 mmHg LVOT Max V: 1.14 m/s Pulmonary Valve PV Peak Morris.: 1.52 m/s PV Peak Gr.: 9.21 mmHg Tricuspid Valve TR Peak Morris.: 3.34 m/s RAP Estimate: 10.00 mmHg TR Peak Gr.: 50.15 mmHg PA Pressure: 60.00 mmHg Left Ventricle [facility] [address] [place] [address] 2 D/M-MODE ECHOCARDIOGRAM Name: JEROME WHITLOCK Room #: 201-P [facility] IN M.R.#: [id number] Admission: 09/14/17 Attend Phys: Dawn Zhu Discharge: Date of : 35 Date of Service: 09/16/17 1436 Report #: [id number] The left ventricle is normal size. Regional wall motion is normal. Paradoxical septal motion consistent with right ventricular volume overload. Moderate concentric left ventricular hypertrophy. The overall left ventricular systolic function appears normal. LVEF is 55-60%. This study is not technically sufficient to allow evaluation of the LV diastolic function due to atrial fibrillation. Right Ventricle Right ventricle is at the upper limits of normal. Overall right ventricle is mildly hypokinetic. Atria Left atrium is dilated. Right atrium is dilated. Aortic Valve Aortic valve is calcified. Trace aortic regurgitation. No hemodynamically significant valvular aortic stenosis. Mitral Valve Mild mitral annular calcification. Mild mitral regurgitation. Tricuspid Valve The tricuspid valve is normal in structure. moderate tricuspid regurgitation. PAP is estimated at 60 mmHg. Pulmonic Valve Pulmonic valve is not well visualized. Great Vessels IVC is dilated and collapses >50% with inspiration. Pericardium There is no pericardial effusion. Moderate pleural effusion is noted <Conclusion> Moderate concentric left ventricular hypertrophy. Right ventricle is at the upper limits of normal. Overall right ventricle is mildly hypokinetic. [facility] [address] [address] 2 D/M-MODE ECHOCARDIOGRAM Name: CHINYEREJEROME William Room #: 201-P [facility] IN ..#: [id number] Admission: 09/14/17 Attend Phys: Dawn Zhu Discharge: Date of : 35 Date of Service: 09/16/17 1436 Report #: [id number] LVEF is 55-60%. moderate tricuspid regurgitation. PAP is estimated at 60 mmHg. <ELECTRONICALLY SIGNED> By: Ron Patel MD, FACC 09/16/171435 35 35 Ron Patel MD, FACC /INF
--- NOTE | ~2017-09-14 | CNG ---
[facility] [address] [place] [address] CYTO-NONGYN REPORT PROCEDURE Name: QUINTEN YOUNG William BALDERAS Room #: 201-P ADM IN M.R.#: [id number] Admission: 09/14/17 Date of : 35 Discharge: Report #: [id number] Path Case #: [id number] CYTOPATHOLOGY REPORT COLLECTION DATE: 09/18/2017 RECEIVED DATE: 09/20/2017 SUBMITTING PHYS: Dr. Andres Hale OTHER PHYS: Dr. Dawn Hua CLINICAL HISTORY: J69.0, J96.00 SPECIMEN(S) RECEIVED: A.Pleural fluid * * * * * * * * * * * * FINAL DIAGNOSIS: A. Pleural fluid: - No malignant epithelial cells identified. Numerous reactive mesothelial cells and inflammatory cells present. PATHOLOGIST: Vangie Thurston M.D. REPORT ELECTRONICALLY SIGNED BY: Vangie Thurston M.D. DATE/TIME: 09/21/2017 11:22 * * * * * * * * * * * * GROSS PATHOLOGY: A. Pleural fluid: The specimen is submitted unfixed, labeled "Quinten Young Sr". Received by the Cytology Department is 20 mL of cloudy pink fluid. One ThinPrep slide and a formalin fixed cell block were prepared. (lg09.20.2017) LOGISTICS PLANNER(S): CARLIN Spence(ASCP)IAC INITIAL CPT CODE(S): A; 43109, 39957 Professional services performed by [facility] at [facility] [address], [place] [address] Technical services performed by [facility] at [address] [place] [address]., [address], [place] [address]. [facility] [address] [place] [address], [facility] [address] [place], [place] [address] [place] [address] [place] [address] CYTO-NONGYN REPORT PROCEDURE Name: QUINTEN YOUNG Room #: 201-P ADM IN M.R.#: [id number] Admission: 09/14/17 Date of : 35 Discharge: Report #: [id number] Path Case #: [id number] PHONE: [phone] DIRECTOR: Arpan Ireland M.D. * * * END OF REPORT * * *
--- NOTE | ~2017-09-14 | EKG ---
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
--- NOTE | ~2017-09-14 | HC ---
[facility] [place] [address] [place] [address] CONSULTATION Name: JEROME WHITLOCK Room #: 201-P [facility] IN .R.#: [id number] Admission: 09/14/17 Attend Phys: Dawn Alejandro Discharge: Date of : 35 Report #: [id number] THIS REPORT FOR: //name// CC: Be Alejandro DATE OF SERVICE: 09/15/2017 REQUESTING PHYSICIAN: Dr. Alanis. PRIMARY RESIN FILTERER: Dr. Ron Patel. PRIMARY CARE DOCTOR: Dr. Be Hua. CHIEF COMPLAINT: Shortness of breath. HISTORY OF PRESENT ILLNESS: The patient is an 82-year-old man with a history of persistent atrial fibrillation; coronary artery disease, status post CABG; and severe COPD. He is usually oxygen requiring and in the 2-3-liter range. Over the last 48 hours, he became short of breath and had sats in the high 70s on 6 liters with BiPAP in the Emergency Room at [facility]. His heart rate was in the 140s-150s, in atrial fibrillation. He was placed on high-flow oxygen, diuretics, steroids and antibiotics and his respiratory function has improved. He is not having any air hunger at this point in time and is conversant. His symptoms began progressively but rather acutely in the last 48 hours. He denies weight gain. He denies edema. He denies chest pain or pressure. With his atrial fibrillation, he denies heart racing, skipping or dizziness. He is anticoagulated and he denies any GI or bleeding, but had been unsteady. PAST MEDICAL HISTORY: 1. History of chronic diastolic heart failure. Echocardiogram in 03/2017 demonstrated an ejection fraction of 55%-60%, severe diastolic dysfunction. Left atrium dilated. No aortic stenosis, [id number] tricuspid regurgitation, persistent atrial fibrillation status post CABG. 2. Essential hypertension. 3. Severe COPD. HOME MEDICATIONS: Aspirin 81 mg daily, digoxin 125 mcg daily, diltiazem 300 mg daily, Lasix 40 mg daily, metoprolol 25 mg p.o. b.i.d., KCl 10 mEq daily, Flomax 0.4 mg daily, terazosin 10 mg daily, Pradaxa 150 mg p.o. b.i.d. SOCIAL HISTORY: He is a nonsmoker at this time and quit more than 20 years ago. [facility] [address] [place] [address] CONSULTATION Name: JEROME WHITLOCK Room #: 201-P [facility] IN M.R.#: [id number] Admission: 09/14/17 Attend Phys: Dawn Alejandro Discharge: Date of : 35 Report #: [id number] He does not drink. FAMILY HISTORY: Positive for high blood pressure. PAST SURGICAL HISTORY: CABG, cystectomy. REVIEW OF SYSTEMS: GASTROINTESTINAL: No bleeding. No hematemesis or melena. GENITOURINARY: No dysuria. MUSCULOSKELETAL: Positive weakness and he did have 1 fall. NEUROLOGIC: Denies headaches, blurry vision, slurred speech. CARDIOVASCULAR: No chest pain. Positive shortness of breath, positive orthopnea, positive PND. No edema. EYES: Denies any blurred vision or loss of vision. THROAT: Denies any dysphagia. ALLERGIES: Denies aspirin or contrast allergies. LABORATORY DATA: Hemoglobin is 12.5; white blood cell count 11.7; platelet count is 169,000. Sodium is 142, potassium is 4.0, chloride 101, BUN is 18, creatinine 0.9. Troponin I is 0.04. BNP is 1923. Chest x-ray reveals bilateral infiltrates, right greater than left, small effusions. Troponin I is less than 0.04. ABG: pH of 7.327, pCO2 76, pO2 66. White blood cell count is elevated at 11.7, hemoglobin 12.5. IMPRESSION: 1. Acute chronic obstructive pulmonary disease exacerbation. He is followed by Pulmonary colleagues, and placed on aggressive medical therapy. 2. Pneumonia. He is treated on broad-spectrum antibiotics. 3. Acute diastolic heart failure. There is evidence of heart failure on examination, he has been placed on Lasix IV. I would continue with this for at least 48 hours. 4. Atrial fibrillation, he presented tachycardic, but I suspect that this was secondary to air hunger. I have noticed his telemetry, he has improved in the low 100s presently. We will continue with his rate control strategy and anticoagulation as he has an elevated CHADS-VASc score. 5. Coronary artery disease. He reports no angina. We will continue with conservative, medical therapy for this. <ELECTRONICALLY SIGNED> By: Ron Patel MD, [facility] 09/22/17 0844 0828 0942 Ron Patel MD, FACC /nt
[~2017-09-14 12:11] MED LIST changes: +ACIDOPHILUS1 EAC4 PO; +ASPIRIN325 PO; +COLACE100 MG PO; +COMBIVENT RESPIM4 GM; +FLOMAX0.4 MG PO; +HYDROCHLOROTHIA25 M1 PO; +LOPRESSOR25 PO; +MAGOX 400400 MG PO; +PROTONIX40 M1 PO
[2017-09-14 12:13] VITALS: BP 161/79
[2017-09-14 12:30] LABS: BE(vivo) 9.9 mmol/L (-2 to +3); PO2 66.6 mmHg (80.0-100.0); sO2 90.9 % (92.0-98.0)
[2017-09-14 12:32] LABS: PCO2 76.1 mmHg (35.0-45.0); pH 7.327 (7.360-7.450)
[2017-09-14] MEDS ORDERED: PRADAXA150 MG PO (12:36)
[2017-09-14 12:42] LABS: ABSOLUTE NEUTROPHILS 9.5 thou/uL (1.4-8.2); BASOPHILS 0.3 % (0.0-2.0); EOSINOPHILS 0.1 % (0.0-3.0); HEMATOCRIT 37.8 % (42.0-52.0); HEMOGLOBIN 12.5 gm/dL (14.0-18.0); MCH 30.6 pg (26.0-34.0); MCV 92.7 fL (80.0-100.0); MONOCYTES 8.2 % (1.0-8.0); PLATELET COUNT 169 thou/uL (150-400); POLYS 81.4 % (36.0-66.0); RBC 4.08 mil/uL (4.50-6.00); RDW 14.5 % (10.5-14.5); WBC 11.7 thou/uL (4.0-11.0)
[2017-09-14 12:51] LABS: ANION GAP < 0 mmol/L (7-16); BUN 18 mg/dL (7-18); CALCIUM 9.1 mg/dL (8.5-10.1); CHLORIDE 101 mmol/L (98-107); CO2 42 mmol/L (21-32); CREATININE 0.9 mg/dL (0.7-1.3); GLUCOSE 122 mg/dL (74-106); SODIUM 142 mmol/L (136-145)
[2017-09-14 13:00] LABS: TROPONIN-I < 0.04 ng/mL (<0.06)
[2017-09-14 13:27] VITALS: BP 161/79
[2017-09-14 13:56] LABS: BE(vivo) 10.9 mmol/L (-2 to +3); HCO3 40.8 mmol/L (22.0-26.0); sO2 95.5 % (92.0-98.0)
[2017-09-14 13:57] LABS: PCO2 85.4 mmHg (35.0-45.0); pH 7.297 (7.360-7.450)
[2017-09-14 14:17] VITALS: BP 124/67
[2017-09-14 14:45] VITALS: BP 156/66
[2017-09-14] MEDS ORDERED: COLACE100 MG PO (16:03)
[2017-09-14] MEDS ORDERED: VOLTAREN GEL 1100 G2 TOP (16:04)
[2017-09-14 17:32] LABS: BE(vivo) 11.5 mmol/L (-2 to +3); HCO3 40.4 mmol/L (22.0-26.0); PO2 58.4 mmHg (80.0-100.0); pH 7.339 (7.360-7.450); sO2 87.3 % (92.0-98.0)
[2017-09-14 17:33] LABS: PCO2 76.7 mmHg (35.0-45.0)
[2017-09-14] MEDS ORDERED: POTASSIUM CHLO10 MEQ PO (18:24)
[2017-09-14] MEDS ORDERED: CARTIA XT300 M1 PO (18:25)
[2017-09-14 20:05] VITALS: BP 159/61
[2017-09-14 23:28] VITALS: BP 170/75
[2017-09-15 04:34] LABS: BE(vivo) 13.7 mmol/L (-2 to +3); HCO3 43.7 mmol/L (22.0-26.0); sO2 95.8 % (92.0-98.0)
[2017-09-15 04:35] LABS: PCO2 85.9 mmHg (35.0-45.0); pH 7.324 (7.360-7.450)
[2017-09-15 05:00] VITALS: BP 150/89
[2017-09-15 08:29] VITALS: BP 157/68
[2017-09-15 12:21] LABS: HEMATOCRIT 37.5 % (42.0-52.0); HEMOGLOBIN 12.4 gm/dL (14.0-18.0); MCH 31.1 pg (26.0-34.0); MCHC 33.2 g/dL (28.0-37.0); MCV 93.8 fL (80.0-100.0); RDW 14.7 % (10.5-14.5); WBC 9.7 thou/uL (4.0-11.0)
[2017-09-15 12:26] VITALS: BP 121/52
[2017-09-15 12:30] LABS: ANION GAP < 0 mmol/L (7-16); BUN 28 mg/dL (7-18); CALCIUM 8.6 mg/dL (8.5-10.1); CHLORIDE 100 mmol/L (98-107); CO2 44 mmol/L (21-32); CREATININE 1.1 mg/dL (0.7-1.3); GLUCOSE 170 mg/dL (74-106); POTASSIUM 4.3 mmol/L (3.5-5.1); SODIUM 142 mmol/L (136-145)
[2017-09-15 15:21] VITALS: BP 132/61
[2017-09-15 19:30] VITALS: BP 126/61
[2017-09-15 23:35] VITALS: BP 154/73
[2017-09-16 03:40] VITALS: BP 137/69
[2017-09-16 07:08] LABS: HCO3 41.9 mmol/L (22.0-26.0); PO2 90.4 mmHg (80.0-100.0); sO2 95.7 % (92.0-98.0)
[2017-09-16 07:09] LABS: PCO2 84.5 mmHg (35.0-45.0); pH 7.313 (7.360-7.450)
[2017-09-16 09:28] VITALS: BP 144/99
[2017-09-16 11:15] VITALS: BP 142/80
[2017-09-16 16:03] VITALS: BP 133/82
[2017-09-16 20:31] VITALS: BP 165/77
[2017-09-16 23:06] LABS: ADENOVIRUS Negative (Negative); INFLUENZA A Negative (Negative); INFLUENZA B Negative (Negative); METAPNEUMOVIRUS Negative (Negative); PARAINFLUENZA 1 Negative (Negative); PARAINFLUENZA 2 Negative (Negative); PARAINFLUENZA 3 Negative (Negative); RHINOVIRUS Negative (Negative); RSV A Negative (Negative); RSV B Negative (Negative)
[2017-09-17 04:17] LABS: HEMATOCRIT 37.4 % (42.0-52.0); HEMOGLOBIN 12.2 gm/dL (14.0-18.0); MCH 30.2 pg (26.0-34.0); MCHC 32.5 g/dL (28.0-37.0); MCV 92.9 fL (80.0-100.0); RBC 4.03 mil/uL (4.50-6.00); RDW 14.1 % (10.5-14.5); WBC 12.8 thou/uL (4.0-11.0)
[2017-09-17 04:29] LABS: ALBUMIN 2.4 g/dL (3.4-5.0); ANION GAP < 0 mmol/L (7-16); BUN 34 mg/dL (7-18); CALCIUM 8.2 mg/dL (8.5-10.1); CHLORIDE 100 mmol/L (98-107); CO2 44 mmol/L (21-32); GLUCOSE 129 mg/dL (74-106); PHOSPHORUS 3.5 mg/dL (2.5-4.9); POTASSIUM 4.2 mmol/L (3.5-5.1); SODIUM 142 mmol/L (136-145)
[2017-09-17 04:51] VITALS: BP 136/80
[2017-09-17 08:05] VITALS: BP 136/63
[2017-09-17 10:43] LABS: INR 1.2; PROTIME 12.5 Seconds (9.3-11.4)
[2017-09-17 15:09] VITALS: BP 140/81
[2017-09-17 18:03] LABS: BF NUCLEATED CELLS 459; BF RBC 2784
[2017-09-17 18:04] LABS: CLARITY CLOUDY; COLOR AMBER; TOTAL VOLUME 60 mL
[2017-09-17 19:26] LABS: BF MACROPHAGE 11; BF NEUTROPHILS 23; SOURCE CHEST FLUID
[2017-09-17 19:52] VITALS: BP 139/80
[2017-09-18 00:11] VITALS: BP 147/86
[2017-09-18 04:58] VITALS: BP 133/66
[2017-09-18 07:09] VITALS: BP 162/75
[2017-09-18 10:15] LABS: HEMATOCRIT 43.3 % (42.0-52.0); MCH 30.2 pg (26.0-34.0); MCHC 32.4 g/dL (28.0-37.0); MCV 93.1 fL (80.0-100.0); RBC 4.65 mil/uL (4.50-6.00); WBC 11.9 thou/uL (4.0-11.0)
[2017-09-18 10:24] LABS: BUN 36 mg/dL (7-18); CALCIUM 8.9 mg/dL (8.5-10.1); CHLORIDE 98 mmol/L (98-107); CREATININE 0.9 mg/dL (0.7-1.3); GLUCOSE 143 mg/dL (74-106); POTASSIUM 4.4 mmol/L (3.5-5.1); SODIUM 143 mmol/L (136-145)
[2017-09-18 10:26] LABS: CO2 > 45 mmol/L (21-32)
[2017-09-18 11:33] LABS: SOURCE CHEST
[2017-09-18 12:30] LABS: CLARITY TURBID; COLOR AMBER; SOURCE LEFT CHEST; TOTAL VOLUME 50 mL
[2017-09-18 12:38] LABS: BF NUCLEATED CELLS 112; BF RBC 5808
[2017-09-18 12:45] VITALS: BP 138/103
[2017-09-18 13:31] LABS: BF MACROPHAGE 5; BF NEUTROPHILS 8
[2017-09-18 14:08] LABS: BODY FLUID ALBUMIN 1.5 g/dL (()); BODY FLUID AMYLASE 19 U/L (()); BODY FLUID GLUCOSE 164 mg/dL (()); BODY FLUID LDH 84 IU/L (()); BODY FLUID PROTEIN 2.6 g/dL (())
[2017-09-18 15:10] VITALS: BP 155/109
[2017-09-18 19:22] LABS: SOURCE CHEST
[2017-09-18 20:11] VITALS: BP 151/65
[2017-09-19 03:42] VITALS: BP 158/74
[2017-09-19 04:56] LABS: HCO3 43.2 mmol/L (22.0-26.0); PCO2 72.8 mmHg (35.0-45.0); PO2 74.4 mmHg (80.0-100.0); pH 7.391 (7.360-7.450); sO2 94.2 % (92.0-98.0)
[2017-09-19 08:19] VITALS: BP 159/82
[2017-09-19 11:02] VITALS: BP 125/64
[2017-09-19 13:08] LABS: BODY FLUID ALBUMIN 1.1 g/dL (()); BODY FLUID AMYLASE 13 U/L (()); BODY FLUID GLUCOSE 177 mg/dL (()); BODY FLUID LDH 56 IU/L (()); BODY FLUID PROTEIN 1.9 g/dL (())
[2017-09-19 13:19] LABS: HEMATOCRIT 35.8 % (42.0-52.0); HEMOGLOBIN 11.5 gm/dL (14.0-18.0)
[2017-09-19 15:27] VITALS: BP 140/88
[2017-09-19 16:01] VITALS: BP 140/88
[2017-09-19 20:34] VITALS: BP 162/85
[2017-09-20 03:02] VITALS: BP 134/79
[2017-09-20 04:25] LABS: ALBUMIN 2.1 g/dL (3.4-5.0); BUN 44 mg/dL (7-18); CALCIUM 8.1 mg/dL (8.5-10.1); CHLORIDE 104 mmol/L (98-107); CREATININE 0.7 mg/dL (0.7-1.3); GLUCOSE 124 mg/dL (74-106); POTASSIUM 4.7 mmol/L (3.5-5.1); SODIUM 146 mmol/L (136-145)
[2017-09-20 04:29] LABS: CO2 > 45 mmol/L (21-32)
[2017-09-20 08:29] VITALS: BP 144/93
[2017-09-20 10:59] VITALS: BP 124/56
[2017-09-20 18:28] VITALS: BP 134/70
[2017-09-20 19:03] VITALS: BP 128/58
[2017-09-21] VITALS (8 sets, daily range): BP systolic 99–144; BP diastolic 55–79
[2017-09-21] MEDS ORDERED: CARDIZEM CD 18180 M3 PO (10:50)
[2017-09-21] MEDS ORDERED: AUGMENTIN 875-1 EACH PO (10:50)
[2017-09-21] MEDS ORDERED: PREDNISONE 20 M20 M1 PO (10:51)
[2017-09-22 04:14] VITALS: BP 112/67
[2017-09-22 07:10] VITALS: BP 141/61
[2017-09-22 11:39] VITALS: BP 107/58
[2017-09-22 15:29] VITALS: BP 111/63
== END 2017-09-22 17:39 | DRG 291 ==
LOC: ER 12:11 → EROBS 13:10 → 2N 13:10
PROVIDERS: Hospitalist; Internal Medicine Pulmonary Disease; Nurse Practitioner
PROC: 5A09357 Assistance with Respiratory Ventilation, Less than 24 Consecutive Hours, Continuous Positive Airway Pressure (ICD-10-PCS; 2017-09-14)
PROC: 0W993ZZ Drainage of Right Pleural Cavity, Percutaneous Approach (ICD-10-PCS; 2017-09-17)
PROC: 0W9B3ZZ Drainage of Left Pleural Cavity, Percutaneous Approach (ICD-10-PCS; principal; 2017-09-18)
DX: I11.0 Hypertensive heart disease with heart failure (principal); J96.21 Acute and chronic respiratory failure with hypoxia; J96.22 Acute and chronic respiratory failure with hypercapnia; J18.9 Pneumonia, unspecified organism; J44.1 Chronic obstructive pulmonary disease with (acute) exacerbation; J90 Pleural effusion, not elsewhere classified; D62 Acute posthemorrhagic anemia; K92.1 Melena; J44.0 Chronic obstructive pulmonary disease with (acute) lower respiratory infection; I50.43 Acute on chronic combined systolic (congestive) and diastolic (congestive) heart failure; I25.5 Ischemic cardiomyopathy; G47.33 Obstructive sleep apnea (adult) (pediatric); E78.5 Hyperlipidemia, unspecified; I25.10 Atherosclerotic heart disease of native coronary artery without angina pectoris; I48.0 Paroxysmal atrial fibrillation; Z85.51 Personal history of malignant neoplasm of bladder; Z95.1 Presence of aortocoronary bypass graft; Z88.2 Allergy status to sulfonamides; Z87.891 Personal history of nicotine dependence; Z85.01 Personal history of malignant neoplasm of esophagus; Z79.899 Other long term (current) drug therapy; Z79.82 Long term (current) use of aspirin; Z99.81 Dependence on supplemental oxygen; Z28.21 Immunization not carried out because of patient refusal
CPT/HCPCS: 10081